=== PATIENT | female | born 1970 | race Caucasian/White ===

== ENCOUNTER → 2024-09-06 14:17 | Outpatient (REF) | payer BC, SELFPAY | LOC: WDC 14:17 | PROVIDERS: ATTENDING PHYSICIAN Obstetrics & Gynecology; FAMILY PHYSICIAN Nurse Practitioner Family | DX: Z12.31 Encounter for screening mammogram for malignant neoplasm of breast (principal) | CPT/HCPCS: 77063; 77067 ==

== ENCOUNTER → 2025-09-12 08:20 | Outpatient (REF) | payer BC, SELFPAY | LOC: WDC 08:20 | PROVIDERS: ATTENDING PHYSICIAN Obstetrics & Gynecology; FAMILY PHYSICIAN Family Medicine | DX: Z12.31 Encounter for screening mammogram for malignant neoplasm of breast (principal) | CPT/HCPCS: 77063; 77067 ==